=== PATIENT | female | born 1995 | race Caucasian/White ===

== ENCOUNTER → 2019-08-26 12:07 | Outpatient (CLI) | payer OTHER, SELFPAY | DX: Z23 Encounter for immunization (principal) | CPT/HCPCS: 90471; 90686 ==

== ENCOUNTER 2020-08-07 14:14 | Emergency (ER) | payer OTHER, SELFPAY ==
[2020-08-07 14:28] VITALS: BP 146/91; PULSE 103; RESP 18; TEMP 37.2; O2SAT 98; BMI 41.8
[2020-08-07 14:48] LABS: Bacteria Urine None Seen
[2020-08-07 14:55] LABS: Culture Indicated Urine Cult Not Indicated; RBC Urine 0-1/HPF (0-5/HPF); Squamous Epithelial Cell Urine 0-1 /HPF (0-5/HPF); WBC Urine 0-1/HPF (0-5/HPF)
[2020-08-07 15:34] LABS: Add Manual Diff / Slide Review NO; Basophils Absolute Auto 0 /uL (0-100); Basophils Percent Auto 0.2 % (0-2); Eosinophils Absolute Auto 100 /uL (0-450); Eosinophils Percent Auto 0.8 % (2-4); Hemoglobin 13.2 g/dL (12.0-16.0); Lymphocytes Absolute Auto 2500 /uL (1100-4500); Lymphocytes Percent Auto 22.5 % (25-40); Mean Corpuscular HGB Conc 33.7 % (30-36); Mean Corpuscular Hemoglobin 27.9 PG (26-34); Mean Corpuscular Volume 82.8 fL (80-100); Monocytes Absolute Auto 600 /uL (0-900); Monocytes Percent Auto 5.1 % (3-14); Neutrophils Absolute Auto 7900 /uL (1500-7000); Neutrophils Percent Auto 71.4 % (50-75); Platelet Count 297 X10^3/uL (150-400); Red Blood Cell Count 4.71 X10^6/uL (4.0-5.2)
[2020-08-07] MEDS: SODIUM CHLORIDE 0.9% 1,000 ML 1000 ML IV ×2 (15:44→16:35)
[2020-08-07 15:45] LABS: Alanine Aminotransferase 29 IU/L (<35); Albumin 4.6 g/dL (3.5-5.0); Albumin Globulin Ratio 1.4 (1.0-2.8); Alkaline Phosphatase 51 U/L (38-126); Aspartate Aminotransferase 32 IU/L (14-36); BUN Creatinine Ratio 7.6 (6-22); Bilirubin Total 0.5 mg/dL (0.2-1.3); Blood Urea Nitrogen 12 mg/dL (7-17); Calcium 9.2 mg/dL (8.4-10.2); Carbon Dioxide 28 mmol/L (22-32); Chloride 104 mmol/L (98-107); Estimated Glomerular Filt Rate 40.5 mL/min (>60); Globulin 3.2 g/dL (1.7-4.1); Glucose 108 mg/dL (70-100); HEMOLYSIS < 15 (0-50); Magnesium 1.9 mg/dL (1.6-2.3); Potassium 3.9 mmol/L (3.4-5.1); Sodium 139 mmol/L (137-145); Total Protein 7.8 g/dL (6.3-8.2)
[2020-08-07 15:59] VITALS: PULSE 67; O2SAT 99
[2020-08-07 16:00] VITALS: BP 102/60; PULSE 71; O2SAT 100
[2020-08-07 16:23] VITALS: PULSE 99; RESP 16; O2SAT 99
[2020-08-07 16:39] LABS: COVID19 -Nasal RAPID Negative (Negative)
[2020-08-07 17:00] VITALS: BP 124/63
--- NOTE | 2020-08-07 19:23 | ED_ITS ---
HPI - Dizziness <BARRON Arthur - Last Filed: 08/07/20 19:30> General Chief Complaint: Dizziness Stated Complaint: vertigo, body feels hot, nausea Time Seen by Provider: 08/07/20 14:40 Source: patient Mode of arrival: Wheelchair Limitations: no limitations History of Present Illness HPI Narrative: The patient is a 25-year-old female current smoker who denies pertinent medical history presents with a chief complaint of an episode of dizziness earlier today. 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 She states she was in the room, stepped back and felt like she was very dizzy. She felt as though she had sea legs. She states that she has not felt like that before, she has not had enough to drink today, has barely eaten today. She states she has not had enough to drink today or yesterday. She states that she felt panicky and anxious afterwards. She denies any chest pain or shortness of breath. She felt hot, but denies any fevers. She does not have a history of diabetes, states that the room got blurry for a second. She denies pain. She denies any current dysuria urgency or frequency, but states she had slight dysuria yesterday. She did not fall or syncopized. Related Data Allergies Allergy/AdvReac Type Severity Reaction Status Date / Time No Known Drug Allergies Allergy Verified 08/07/20 14:33 Review of Systems <BARRON Arthur - Last Filed: 08/07/20 19:30> Review of Systems Narrative: GENERAL: Denies chills, fatigue, malaise, fever, sweats. HEENT: See HPI RESPIRATORY: Denies dyspnea, cough, wheezing, hemoptysis, sputum. CARDIOVASCULAR: Denies chest pain, palpitations, orthopnea, edema, GASTROINTESTINAL: Denies nausea, vomiting, abdominal pain, diarrhea, constipation, melena. : Denies dysuria, frequency, incontinence, hematuria, urinary retention. MUSCULOSKELETAL: denies weakness, joint pain, or bony pain SKIN: Denies rash, skin lesions, or other NEUROLOGIC: Denies weakness, headache, numbness, change in speech, confusion, seizures, incoordination. PSYCHIATRIC: No concerning psychosocial issues. 12 point review of systems is negative except for those stated above Patient History <BARRON Arthur - Last Filed: 08/07/20 19:30> Social History Smoking Status: Current every day smoker Smoking Status: Current every day smoker tobacco type: vaping alcohol intake frequency: 0-2 drinks per day Alcohol type: hard liquor Substance Use Type: does not use Exam <Yue Willoughby ANIMAL CARE WORKER-BC - Last Filed: 08/07/20 19:30> Narrative Exam Narrative: GENERAL: This is a well-nourished, well-developed patient, in no acute distress HEAD: Atraumatic. Normocephalic. No temporal or scalp tenderness. EYES: Pupils equal round and reactive. Extraocular motions intact. No scleral i cterus. No injection or drainage. ENT: Nose without bleeding, purulent drainage or septal hematoma. Throat without erythema, tonsillar hypertrophy or exudate. Uvula midline. Airway patent. Dry mucous membranes noted. NECK: Trachea midline. No JVD or lymphadenopathy. Supple, nontender, no meningeal signs. CARDIOVASCULAR: Regular rate and rhythm RESPIRATORY: Clear to auscultation. Breath sounds equal bilaterally. No wheezes, rales, or rhonchi. No cough. No increased respiratory effort. No accessory muscle use. GASTROINTESTINAL: Abdomen soft, non-tender, nondistended. No hepato-splenomegal y, or palpable masses. No guarding. EXTREMITIES: No clubbing, cyanosis, or edema. No joint tenderness, effusion, or edema noted. BACK: Nontender without deformity or crepitance. No flank tenderness. NEURO: AOx3. Strength is equal upper lower extremities bilaterally. No gross cranial nerve deficit. Stable gait. Clear speech. SKIN: No rash or erythema on visible skin. Initial Vital Signs Initial Vital Signs: Vital Signs Temperature 98.9 F 08/07/20 14:28 Pulse Rate 103 H 08/07/20 14:28 Respiratory Rate 18 08/07/20 14:28 Blood Pressure 146/91 H 08/07/20 14:28 Pulse Oximetry 98 08/07/20 14:28 <Caryn Pruitt DO - Last Filed: 08/08/20 07:39> Initial Vital Signs Initial Vital Signs: Vital Signs Temperature 98.9 F 08/07/20 14:28 Pulse Rate 103 H 08/07/20 14:28 Respiratory Rate 18 08/07/20 14:28 Blood Pressure 146/91 H 08/07/20 14:28 Pulse Oximetry 98 08/07/20 14:28 Scores <BARRON Arthur - Last Filed: 08/07/20 19:30> GCS [place] coma scale eye opening: Spontaneous [place] coma scale verbal response: [place] coma scale motor response: Obey commands [place] coma scale total score: 15 Course <BARRON Arthur - Last Filed: 08/07/20 19:30> Orders Ordered: Discontinued Medications Sodium Chloride (Normal Saline 0.9%) 1,000 mls @ 1,000 mls/hr IV BOLUS ONE Stop: 08/07/20 16:18 Last Infusion: 08/07/20 16:35 Dose: 0 mls/hr Documented by: Admin: 08/07/20 15:44 Dose: 1,000 mls/hr Documented by: CHALO Sodium Chloride (Normal Saline 0.9%) 1,000 mls @ 1,000 mls/hr IV BOLUS ONE Stop: 08/07/20 17:01 Last Infusion: 08/07/20 17:20 Dose: 0 mls/hr Documented by: Admin: 08/07/20 16:35 Dose: 1,000 mls/hr Documented by: ANDRES Vital Signs Vital signs: Vital Signs - 8 hr 08/07/20 14:28 08/07/20 15:59 08/07/20 16:00 Temperature 98.9 F Pulse Rate 103 H 67 71 Respiratory Rate 18 Blood Pressure 146/91 H 102/60 Pulse Oximetry 98 99 100 08/07/20 16:23 08/07/20 17:00 Temperature Pulse Rate 99 H Respiratory Rate 16 Blood Pressure 124/63 Pulse Oximetry 99 <Caryn Pruitt DO - Last Filed: 08/08/20 07:39> Orders Ordered: Discontinued Medications Sodium Chloride (Normal Saline 0.9%) 1,000 mls @ 1,000 mls/hr IV BOLUS ONE Stop: 08/07/20 16:18 Last Infusion: 08/07/20 16:35 Dose: 0 mls/hr Documented by: Admin: 08/07/20 15:44 Dose: 1,000 mls/hr Documented by: CHALO Sodium Chloride (Normal Saline 0.9%) 1,000 mls @ 1,000 mls/hr IV BOLUS ONE Stop: 08/07/20 17:01 Last Infusion: 08/07/20 17:20 Dose: 0 mls/hr Documented by: Admin: 08/07/20 16:35 Dose: 1,000 mls/hr Documented by: ANDRES Vital Signs Vital signs: Vital Signs - 8 hr 08/07/20 14:28 08/07/20 15:59 08/07/20 16:00 Temperature 98.9 F Pulse Rate 103 H 67 71 Respiratory Rate 18 Blood Pressure 146/91 H 102/60 Pulse Oximetry 98 99 100 08/07/20 16:23 08/07/20 17:00 Temperature Pulse Rate 99 H Respiratory Rate 16 Blood Pressure 124/63 Pulse Oximetry 99 MDM - Dizziness <BARRON Arthur - Last Filed: 08/07/20 19:30> Lab Data Attestation: I reviewed the patient's lab results. Result diagrams: 08/07/20 15:25 08/07/20 15:25 Labs: Lab Results 08/07/20 08/07/20 08/07/20 Range/Units 14:31 15:25 15:25 WBC 11.0 (4.5-11.0) X10^3/uL RBC 4.71 (4.0-5.2) X10^6/uL Hgb 13.2 (12.0-16.0) g/dL Hct 39.0 (36-46) % MCV 82.8 (80-100) fL MCH 27.9 (26-34) PG MCHC 33.7 (30-36) % RDW 13.0 (11.6-14.8) % Plt Count 297 (150-400) X10^3/uL Neut % (Auto) 71.4 (50-75) % Lymph % (Auto) 22.5 L (25-40) % [place] % (Auto) 5.1 (3-14) % Eos % (Auto) 0.8 L (2-4) % Baso % (Auto) 0.2 (0-2) % Neut # (Auto) 7900 H (1759-0926) /uL Lymph # (Auto) 2500 (1505-6277) /uL [place] # (Auto) 600 (0-900) /uL Eos # (Auto) 100 (0-450) /uL Baso # (Auto) 0 (0-100) /uL Sodium 139 (137-145) mmol/L Potassium 3.9 (3.4-5.1) mmol/L Chloride 104 (98-107) mmol/L Carbon Dioxide 28 (22-32) mmol/L BUN 12 (7-17) mg/dL Creatinine 1.58 H (0.52-1.04) mg/dL Estimated GFR 40.5 L (>60) mL/min BUN/Creatinine Ratio 7.6 (6-22) Glucose 108 H (70-100) mg/dL Calcium 9.2 (8.4-10.2) mg/dL Magnesium 1.9 (1.6-2.3) mg/dL Total Bilirubin 0.5 (0.2-1.3) mg/dL AST 32 (14-36) IU/L ALT 29 (<35) IU/L Alkaline Phosphatase 51 (38-126) U/L Total Protein 7.8 (6.3-8.2) g/dL Albumin 4.6 (3.5-5.0) g/dL Globulin 3.2 (1.7-4.1) g/dL Albumin/Globulin Ratio 1.4 (1.0-2.8) Urine RBC 0-1/hpf (0-5/HPF) Urine WBC 0-1/hpf (0-5/HPF) Ur Squamous Epith Cells 0-1 /hpf (0-5/HPF) Urine Bacteria None seen (None) Ur Culture Indicated? Cult not indicated COVID-19 PCR (Negative) 08/07/20 Range/Units 16:10 WBC (4.5-11.0) X10^3/uL RBC (4.0-5.2) X10^6/uL Hgb (12.0-16.0) g/dL Hct (36-46) % MCV (80-100) fL MCH (26-34) PG MCHC (30-36) % RDW (11.6-14.8) % Plt Count (150-400) X10^3/uL Neut % (Auto) (50-75) % Lymph % (Auto) (25-40) % [place] % (Auto) (3-14) % Eos % (Auto) (2-4) % Baso % (Auto) (0-2) % Neut # (Auto) (9719-6929) /uL Lymph # (Auto) (5422-0665) /uL [place] # (Auto) (0-900) /uL Eos # (Auto) (0-450) /uL Baso # (Auto) (0-100) /uL Sodium (137-145) mmol/L Potassium (3.4-5.1) mmol/L Chloride (98-107) mmol/L Carbon Dioxide (22-32) mmol/L BUN (7-17) mg/dL Creatinine (0.52-1.04) mg/dL Estimated GFR (>60) mL/min BUN/Creatinine Ratio (6-22) Glucose (70-100) mg/dL Calcium (8.4-10.2) mg/dL Magnesium (1.6-2.3) mg/dL Total Bilirubin (0.2-1.3) mg/dL AST (14-36) IU/L ALT (<35) IU/L Alkaline Phosphatase (38-126) U/L Total Protein (6.3-8.2) g/dL Albumin (3.5-5.0) g/dL Globulin (1.7-4.1) g/dL Albumin/Globulin Ratio (1.0-2.8) Urine RBC (0-5/HPF) Urine WBC (0-5/HPF) Ur Squamous Epith Cells (0-5/HPF) Urine Bacteria (None) Ur Culture Indicated? COVID-19 PCR Negative (Negative) Point of Care Testing Test Results Negative Urine Dip Bedside Urine Glucose Negative Bedside Urine Bilirubin - Negative Bedside Urine Ketone - Negative Urine Specific [place] 1.015 Bedside Urine Occult Blood +++ Bedside Urine pH 6.0 Bedside Urine Protein - Negative Bedside Urine Urobilinogen - Negative Bedside Urine Nitrite - Negative Bedside Urine Leukocytes - Negative Esterase ECG Data Attestation: I personally reviewed and interpreted this ECG as follows: Interpretation: Sinus rhythm. Ventricular rate 76. P.r. interval 136. QRS of 82. viewed by Dr Pruitt [facility] Narrative Medical decision making narrative: The patient is a 25-year-old female who presents with a chief complaint of dizziness for a few seconds in a patient's room. Her lab work is grossly within normal limits, though it is noted that her creatinine is slightly elevated 1.58. The patient does note that she has not been drinking water at work yesterday or today. I discussed at length pushing fluids, making sure that she is hydrated even during busy work shifts. I discussed at length importance of following up with primary care provider especially for re-evaluation of lab work. She felt much improved after the above-stated therapies, particularly the fluids and was requesting to go. I discussed at length coming back to the ER for any acute concerns. Patient does have a few days off of work to stay home hydrate. Patient has no questions or concerns upon discharge and states understanding return precautions as well as follow-up care. She has no signs of urinary tract infection, other than elevated creatinine/BUN normal CBC and CMP and Mag. <Caryn Pruitt, DO - Last Filed: 08/08/20 07:39> Lab Data Labs: Lab Results 08/07/20 08/07/20 08/07/20 Range/Units 14:31 15:25 15:25 WBC 11.0 (4.5-11.0) X10^3/uL RBC 4.71 (4.0-5.2) X10^6/uL Hgb 13.2 (12.0-16.0) g/dL Hct 39.0 (36-46) % MCV 82.8 (80-100) fL MCH 27.9 (26-34) PG MCHC 33.7 (30-36) % RDW 13.0 (11.6-14.8) % Plt Count 297 (150-400) X10^3/uL Neut % (Auto) 71.4 (50-75) % Lymph % (Auto) 22.5 L (25-40) % [place] % (Auto) 5.1 (3-14) % Eos % (Auto) 0.8 L (2-4) % Baso % (Auto) 0.2 (0-2) % Neut # (Auto) 7900 H (5636-5717) /uL Lymph # (Auto) 2500 (0994-0890) /uL [place] # (Auto) 600 (0-900) /uL Eos # (Auto) 100 (0-450) /uL Baso # (Auto) 0 (0-100) /uL Sodium 139 (137-145) mmol/L Potassium 3.9 (3.4-5.1) mmol/L Chloride 104 (98-107) mmol/L Carbon Dioxide 28 (22-32) mmol/L BUN 12 (7-17) mg/dL Creatinine 1.58 H (0.52-1.04) mg/dL Estimated GFR 40.5 L (>60) mL/min BUN/Creatinine Ratio 7.6 (6-22) Glucose 108 H (70-100) mg/dL Calcium 9.2 (8.4-10.2) mg/dL Magnesium 1.9 (1.6-2.3) mg/dL Total Bilirubin 0.5 (0.2-1.3) mg/dL AST 32 (14-36) IU/L ALT 29 (<35) IU/L Alkaline Phosphatase 51 (38-126) U/L Total Protein 7.8 (6.3-8.2) g/dL Albumin 4.6 (3.5-5.0) g/dL Globulin 3.2 (1.7-4.1) g/dL Albumin/Globulin Ratio 1.4 (1.0-2.8) Urine RBC 0-1/hpf (0-5/HPF) Urine WBC 0-1/hpf (0-5/HPF) Ur Squamous Epith Cells 0-1 /hpf (0-5/HPF) Urine Bacteria None seen (None) Ur Culture Indicated? Cult not indicated COVID-19 PCR (Negative) 08/07/20 Range/Units 16:10 WBC (4.5-11.0) X10^3/uL RBC (4.0-5.2) X10^6/uL Hgb (12.0-16.0) g/dL Hct (36-46) % MCV (80-100) fL MCH (26-34) PG MCHC (30-36) % RDW (11.6-14.8) % Plt Count (150-400) X10^3/uL Neut % (Auto) (50-75) % Lymph % (Auto) (25-40) % [place] % (Auto) (3-14) % Eos % (Auto) (2-4) % Baso % (Auto) (0-2) % Neut # (Auto) (1152-6011) /uL Lymph # (Auto) (9959-4948) /uL [place] # (Auto) (0-900) /uL Eos # (Auto) (0-450) /uL Baso # (Auto) (0-100) /uL Sodium (137-145) mmol/L Potassium (3.4-5.1) mmol/L Chloride (98-107) mmol/L Carbon Dioxide (22-32) mmol/L BUN (7-17) mg/dL Creatinine (0.52-1.04) mg/dL Estimated GFR (>60) mL/min BUN/Creatinine Ratio (6-22) Glucose (70-100) mg/dL Calcium (8.4-10.2) mg/dL Magnesium (1.6-2.3) mg/dL Total Bilirubin (0.2-1.3) mg/dL AST (14-36) IU/L ALT (<35) IU/L Alkaline Phosphatase (38-126) U/L Total Protein (6.3-8.2) g/dL Albumin (3.5-5.0) g/dL Globulin (1.7-4.1) g/dL Albumin/Globulin Ratio (1.0-2.8) Urine RBC (0-5/HPF) Urine WBC (0-5/HPF) Ur Squamous Epith Cells (0-5/HPF) Urine Bacteria (None) Ur Culture Indicated? COVID-19 PCR Negative (Negative) Point of Care Testing Test Results Negative Urine Dip Bedside Urine Glucose Negative Bedside Urine Bilirubin - Negative Bedside Urine Ketone - Negative Urine Specific [place] 1.015 Bedside Urine Occult Blood +++ Bedside Urine pH 6.0 Bedside Urine Protein - Negative Bedside Urine Urobilinogen - Negative Bedside Urine Nitrite - Negative Bedside Urine Leukocytes - Negative Esterase Discharge Plan Departure Patient Disposition: Home Clinical Impression: Dehydration, Creatinine elevation, Dizziness Discharge Date/Time: 08/07/20 18:10 Instructions: Creatinine, DI for Dehydration -- Adult, DI for Dizziness- Nonvertigo Activity Restrictions/Additional Instructions: Thank you for trusting us with your care today. As discussed, I am concerned that your not drinking enough water. Please rest and push non caffeinated, nonalcoholic fluids. Your creatinine was a bit elevated at 1.58, so please continue to push water and fluids. Please follow-up with primary care provider in the next few days. I have given you contact information to the [facility] health human resources psychologist to help you find a new primary care provider. It is important that you drink water especially during busy shifts. Please come back to the emergency department for any acute concerns. Referrals: [facility] [Outside] Miscellaneous,Doctor, MD [Primary Care Provider] - Stand Alone Forms: Work Release Note <Caryn Pruitt DO - Last Filed: 08/08/20 07:39> Cosign ED Attending Sherrie Attestation: I was immediately available in the department for consultation. Documentation has been reviewed. I agree with assessment and plan.
== END 2020-08-07 18:10 | disposition home or self-care (01) ==
PROVIDERS: Emergency Provider Nurse Practitioner Family
DX: E86.0 Dehydration (principal); R79.89 Other specified abnormal findings of blood chemistry; R42 Dizziness and giddiness; R30.0 Dysuria; Y99.0 Civilian activity done for income or pay
CPT/HCPCS: 80053; 81003; 81015; 81025; 83735; 85025; 87635; 93005; 93010; 96360; 96361; 99284

== ENCOUNTER → 2020-08-17 16:38 | Outpatient (CLI) | payer OTHER, SELFPAY ==
[2020-08-17 18:06] LABS: Free T4, Direct Thyroxine 1.13 ng/dL (0.78-2.19)
[2020-08-17 18:20] LABS: Thyroid Stimulating Hormone 1.31 uIU/mL (0.47-4.68)
[2020-08-17 18:23] LABS: Alanine Aminotransferase 23 IU/L (<35); Albumin 4.5 g/dL (3.5-5.0); Albumin Globulin Ratio 1.4 (1.0-2.8); Alkaline Phosphatase 52 U/L (38-126); Aspartate Aminotransferase 32 IU/L (14-36); BUN Creatinine Ratio 12.8 (6-22); Bilirubin Total 0.6 mg/dL (0.2-1.3); Blood Urea Nitrogen 10 mg/dL (7-17); Calcium 9.6 mg/dL (8.4-10.2); Carbon Dioxide 27 mmol/L (22-32); Chloride 103 mmol/L (98-107); Estimated Glomerular Filt Rate > 60.0 mL/min (>60); Globulin 3.2 g/dL (1.7-4.1); Glucose 91 mg/dL (70-100); HEMOLYSIS < 15 (0-50); Sodium 137 mmol/L (137-145); Total Protein 7.7 g/dL (6.3-8.2)
== END ==
PROVIDERS: PCP Registered Nurse; Referring Provider Registered Nurse; Visit Provider Registered Nurse
DX: R53.83 Other fatigue (principal)
CPT/HCPCS: 36415; 80053; 84439; 84443

== ENCOUNTER → 2020-09-01 | Outpatient (CLI) | payer OTHER, SELFPAY | PROVIDERS: PCP Registered Nurse; Referring Provider Internal Medicine; Visit Provider Internal Medicine | DX: Z23 Encounter for immunization (principal) | CPT/HCPCS: 90471; 90686 ==

== ENCOUNTER → 2020-10-15 11:00 | Outpatient (CLI) | payer OTHER, SELFPAY ==
[2020-10-15] MEDS: COVID-19 VACC(MODERNA-1)/PF 100 MCG/0.5 ML VIAL IM (11:08)
== END ==
PROVIDERS: PCP Registered Nurse; Visit Provider Internal Medicine
DX: Z23 Encounter for immunization (principal)
CPT/HCPCS: 0011A; 91301

== ENCOUNTER → 2020-11-11 10:26 | Outpatient (CLI) | payer OTHER, SELFPAY ==
[2020-11-11] MEDS: COVID-19 VACC #2, MRNA(MOD) 100 MCG/0.5 ML VIAL IM (10:28)
== END ==
PROVIDERS: PCP Registered Nurse; Visit Provider Internal Medicine
DX: Z23 Encounter for immunization (principal)
CPT/HCPCS: 0012A; 91301

== ENCOUNTER → 2021-08-17 17:32 | Outpatient (CLI) | payer OTHER, SELFPAY | PROVIDERS: PCP Registered Nurse; Referring Provider Internal Medicine; Visit Provider Internal Medicine | DX: Z23 Encounter for immunization (principal) | CPT/HCPCS: 90471; 90686 ==